=== PATIENT | male | born 1985 | race Caucasian/White ===

== ENCOUNTER 2022-02-04 17:00 | Emergency (ER) | payer OTHER ==
[~2022-02-04] VITALS: Ht 172.7 cm; Wt 86.2 kg
--- NOTE | 2022-02-04 17:22 | NUR ---
COVID TEST COLLECTED AND SENT
[2022-02-04 17:23] VITALS: BP 146/67
--- NOTE | 2022-02-04 18:05 | NUR ---
Patient discharged to home in stable condition. Written and verbal after care instructions given. Patient verbalizes understanding of instruction.
== END 2022-02-04 18:06 ==
LOC: ER 17:04
DX: Z02.89 Encounter for other administrative examinations (principal); Z20.822 Contact with and (suspected) exposure to COVID-19; F12.90 Cannabis use, unspecified, uncomplicated; Z87.891 Personal history of nicotine dependence
CPT/HCPCS: 99283; 87426; 99406; C9803